=== PATIENT | female | born 1975 | race Caucasian/White ===

== ENCOUNTER 2016-07-16 20:12 | Emergency (ER) | payer OTHER ==
[~2016-07-16] VITALS: Ht 157.5 cm; Wt 123.4 kg
[~2016-07-16 20:12] MED LIST: ASPIRIN325 MG PO; CITALOPRAM HBR20 MG PO; FLAGYL500 MG PO; HYDROCODON-ACE1 EAC7 PO; HYDROXYZINE PAM50 MG PO; METOPROLOL SUCC50 MG PO; NAPROXEN500 MG PO; PERCOCET 5/31 TABLET PO; TRAMADOL HCL50 MG PO; VICOPROFEN1 TABLET PO; ZESTORETIC 20-1 EAC1 PO; ZOFRAN ODT4 MG PO; ZOLPIDEM TARTRA10 MG PO
[2016-07-16 20:46] LABS: HEMATOCRIT 37.4 % (36.0-46.0); MCHC 33.2 G/DL (30.0-36.0); MCV 81.5 FL (83-99); MEAN PLAT.VOLUME 10.1 uM^3 (9.5-12.4); PLATELET COUNT 397 K/uL (156-360); RBC DIS.WIDTH-CV 14.3 % (11.8-14.6); RBC DIS.WIDTH-SD 41.4 % (39-53); RED BLOOD COUNT 4.59 M/uL (3.80-5.20); WHITE BLOOD COUNT 13.2 K/uL (4.1-10.2)
[2016-07-16 20:55] LABS: CHLORIDE 106 mEq/L (99-109); SODIUM 140 mEq/L (136-147)
[2016-07-16 20:57] LABS: GLUCOSE 121 mg/dL (70-99)
[2016-07-16 20:58] LABS: ANION GAP 11 MEQ/L (2-14)
[2016-07-16 20:59] LABS: TOTAL BILIRUBIN 0.2 mg/dL (0.0-1.0)
[2016-07-16 21:01] LABS: ALKALINE PHOSPHATASE 105 IU/L (3-129); GFR ESTIMATE (CALCULATED) > 59 mL/min/
[2016-07-16 21:02] LABS: UREA NITROGEN (BUN) 10 mg/dL (9-23)
[2016-07-16 21:04] LABS: LIPASE 9 U/L (1.0-51.0)
[2016-07-16 21:10] LABS: QUANTITATIVE HCG < 4.0 MIU/ML
[2016-07-16 21:40] LABS: ADD MIUA? NO; BILIRUBIN NEGATIVE; BLOOD NEGATIVE; COLOR YELLOW ((YELLOW)); GLUCOSE (STRIP) NEGATIVE; KETONES NEGATIVE; LEUKOCYTES NEGATIVE; NITRITE NEGATIVE; PROTEIN (STRIP) NEGATIVE; SPECIFIC GRAVITY 1.017 (1.000-1.030); UCUL ADDED? NO; UROBILINOGEN 0.2 MG/DL (0.2-1.0)
[2016-07-16] MEDS ORDERED: PERCOCET 5/31 TABLET PO (23:31)
[2016-07-16 23:54] VITALS: BP 120/74
== END 2016-07-16 23:54 | disposition home or self-care (01) ==
LOC: EME 20:12
DX: N83.202 Unspecified ovarian cyst, left side (principal); I10 Essential (primary) hypertension; Z87.442 Personal history of urinary calculi; Z79.82 Long term (current) use of aspirin; Z90.710 Acquired absence of both cervix and uterus; I48.91 Unspecified atrial fibrillation
CPT/HCPCS: 74177; 76856; 80053; 81003; 83690; 84702; 85027; 99281; 99285; J1170; J1885; J2405

== ENCOUNTER 2016-08-15 06:24 | Emergency (ER) | payer OTHER ==
[~2016-08-15] VITALS: Ht 157.5 cm; Wt 123.2 kg
[2016-08-15 06:47] LABS: HEMATOCRIT 38.1 % (36.0-46.0); MCH 27.7 PG (29.0-34.0); MCHC 33.3 G/DL (30.0-36.0); MEAN PLAT.VOLUME 10.2 uM^3 (9.5-12.4); PLATELET COUNT 404 K/uL (156-360); RBC DIS.WIDTH-CV 14.6 % (11.8-14.6); RBC DIS.WIDTH-SD 43.1 % (39-53); RED BLOOD COUNT 4.59 M/uL (3.80-5.20); WHITE BLOOD COUNT 14.8 K/uL (4.1-10.2)
[2016-08-15 06:50] LABS: BILIRUBIN NEGATIVE; BLOOD NEGATIVE; GLUCOSE (STRIP) NEGATIVE; KETONES NEGATIVE; LEUKOCYTES NEGATIVE; NITRITE NEGATIVE; PROTEIN (STRIP) NEGATIVE; SPECIFIC GRAVITY 1.014 (1.000-1.030); UROBILINOGEN 0.2 MG/DL (0.2-1.0)
[2016-08-15 06:53] LABS: ADD MIUA? NO; COLOR YELLOW ((YELLOW)); UCUL ADDED? NO
[2016-08-15 06:55] LABS: CHLORIDE 107 mEq/L (99-109); POTASSIUM 4.2 mEq/L (3.7-5.4); SODIUM 141 mEq/L (136-147)
[2016-08-15 06:57] LABS: GLUCOSE 97 mg/dL (70-99)
[2016-08-15 06:58] LABS: ANION GAP 10 MEQ/L (2-14)
[2016-08-15 06:59] LABS: TOTAL BILIRUBIN 0.2 mg/dL (0.0-1.0)
[2016-08-15 07:01] LABS: ALKALINE PHOSPHATASE 82 IU/L (3-129); GFR ESTIMATE (CALCULATED) > 59 mL/min/
[2016-08-15 07:02] LABS: UREA NITROGEN (BUN) 13 mg/dL (9-23)
[2016-08-15 08:08] LABS: AMPHETAMINE NEGATIVE (500 ng/mL); BARBITURATES NEGATIVE (200 ng/mL); BENZODIAZEPINES NEGATIVE (150 ng/mL); COCAINE NEGATIVE (150 ng/mL); METHADONE NEGATIVE (200 ng/mL); METHAMPHETAMINE NEGATIVE (500 ng/mL); OPIATES (MORPHINE) NEGATIVE (100 ng/mL); OXYCODONE NEGATIVE (100 ng/mL); PHENCYCLIDINE NEGATIVE (25 ng/mL); PROPOXYPHENE NEGATIVE (300 ng/mL); THC CANNABINOIDS NEGATIVE (50 ng/mL); TRICYCLIC ANTIDEPRESSANTS NEGATIVE (300 ng/mL)
[2016-08-15 08:09] LABS: INTERNAL CONTROLS VALID? YES
[2016-08-15 09:07] VITALS: BP 137/80
== END 2016-08-15 09:22 | disposition left against medical advice (07) ==
LOC: EME 06:24
DX: R10.31 Right lower quadrant pain (principal); G89.29 Other chronic pain; R11.0 Nausea; Z87.442 Personal history of urinary calculi; I10 Essential (primary) hypertension; Z79.891 Long term (current) use of opiate analgesic; Z79.82 Long term (current) use of aspirin
CPT/HCPCS: 80053; 80306 90; 81003; 85027; 99281; 99284; J1630; J1885

== ENCOUNTER 2017-06-25 20:40 | Emergency (ER) | payer OTHER ==
[~2017-06-25] VITALS: Ht 157.5 cm; Wt 120.3 kg
[2017-06-25 22:01] LABS: HEMATOCRIT 39.6 % (36.0-46.0); MCH 26.8 PG (29.0-34.0); MCHC 32.8 G/DL (30.0-36.0); MCV 81.6 FL (83-99); PLATELET COUNT 485 K/uL (156-360); RBC DIS.WIDTH-CV 13.3 % (11.8-14.6); RBC DIS.WIDTH-SD 39.3 % (39-53); RED BLOOD COUNT 4.85 M/uL (3.80-5.20); WHITE BLOOD COUNT 10.8 K/uL (4.1-10.2)
[2017-06-25 22:03] LABS: APPEARANCE CLEAR ((CLEAR)); BILIRUBIN NEGATIVE; BLOOD NEGATIVE; COLOR STRAW ((YELLOW)); GLUCOSE (STRIP) NEGATIVE; KETONES NEGATIVE; LEUKOCYTES NEGATIVE; NITRITE NEGATIVE; PROTEIN (STRIP) NEGATIVE; UCUL ADDED? NO; UROBILINOGEN 0.2 MG/DL (0.2-1.0)
[2017-06-25 22:17] LABS: ALBUMIN 4.5 g/dL (3.2-4.8)
[2017-06-25 22:18] LABS: CHLORIDE 105 mEq/L (99-109); POTASSIUM 4.3 mEq/L (3.7-5.4); SODIUM 139 mEq/L (136-147)
[2017-06-25 22:20] LABS: GLUCOSE 114 mg/dL (70-99); TOTAL PROTEIN 7.8 g/dL (6.4-8.3)
[2017-06-25 22:22] LABS: TOTAL BILIRUBIN 0.2 mg/dL (0.0-1.0)
[2017-06-25 22:23] LABS: ALKALINE PHOSPHATASE 94 IU/L (3-129)
[2017-06-25 22:24] LABS: CREATININE 1.2 mg/dL (0.6-1.3); GFR ESTIMATE (CALCULATED) 53 mL/min/
[2017-06-25 22:25] LABS: AST (GOT) 20 IU/L (2-34); UREA NITROGEN (BUN) 16 mg/dL (9-23)
[2017-06-25 22:26] LABS: ALT (GPT) 25 IU/L (3-49)
[2017-06-25 22:32] LABS: QUANTITATIVE HCG < 4.0 MIU/ML
[2017-06-26] MEDS ORDERED: NAPROSYN500 MG PO (01:13)
[2017-06-26 01:47] VITALS: BP 117/76
== END 2017-06-26 01:48 | disposition home or self-care (01) ==
LOC: EME 20:40
DX: R10.32 Left lower quadrant pain (principal); D17.1 Benign lipomatous neoplasm of skin and subcutaneous tissue of trunk; K57.30 Diverticulosis of large intestine without perforation or abscess without bleeding; K42.9 Umbilical hernia without obstruction or gangrene; I10 Essential (primary) hypertension; Z87.442 Personal history of urinary calculi; Z90.49 Acquired absence of other specified parts of digestive tract; Z90.710 Acquired absence of both cervix and uterus; Z79.82 Long term (current) use of aspirin
CPT/HCPCS: 74177; 80053; 81003; 84702; 85027; 99281; 99285; J1885; J7030